=== PATIENT | female | born 2000 | race Hispanic/Latino ===

== ENCOUNTER 2021-02-26 14:25 | Emergency (ER) | payer MEDICAID ==
[2021-02-26 15:07] LABS: BASOPHILS % (AUTO) 0.4 % (0.0-5.0); EOSINOPHILS % (AUTO) 0.5 % (0.0-8.0); HEMATOCRIT 41.5 % (36-48); LYMPHOCYTES % (AUTO) 14.6 % (21.0-51.0); MEAN CORPUSCULAR HEMOGLOBIN 29.9 pg (27.0-33.0); MEAN CORPUSCULAR HGB CONC 34.9 g/dL (32.0-36.0); MEAN CORPUSCULAR VOLUME 85.6 fL (80-100); MONOCYTES % (AUTO) 6.6 % (3.0-13.0); NEUTROPHILS % (AUTO) 77.6 % (40.0-77.0); PLATELET COUNT (AUTO) 315 K/uL (130-400); RED BLOOD CELL COUNT(AUTO) 4.85 MIL/uL (4.00-5.50); RED CELL DISTRIBUTION WIDTH 12.6 % (11.0-15.5); WHITE BLOOD COUNT (AUTO) 11.4 K/uL (4.8-10.8)
[2021-02-26 15:27] LABS: CREATININE 1.2 mg/dL (0.5-1.5); POTASSIUM 3.6 mmol/L (3.5-5.1)
[2021-02-26 15:54] LABS: ALBUMIN 3.9 g/dL (3.5-5.0); BILIRUBIN,TOTAL 0.3 mg/dL (0.2-1.0); TOTAL PROTEIN, SERUM 8.6 g/dL (6.0-8.3)
[2021-02-26 15:59] LABS: APPEARANCE,URINE Cloudy (CLEAR); BILIRUBIN,URINE Negative (NEGATIVE); COLOR,URINE Yellow (YELLOW); GLUCOSE, URINE (UA) Negative (NEGATIVE); KETONES,URINE Negative (NEGATIVE); LEUKOCYTE ESTERASE ,URINE Small (NEGATIVE); NITRATE,URINE Negative (NEGATIVE); OCCULT BLOOD,URINE Negative (NEGATIVE); PH,URINE 7.5 (5.0-8.0); PROTEIN,URINE Negative (NEGATIVE)
[2021-02-26 16:21] LABS: BACTERIA,URINE Moderate /HPF (None Seen); MUCUS,URINE Few LPF (None Seen); SQUAMOUS EPITHELIAL CELL,UR Many /HPF (0-2)
== END 2021-02-26 16:22 | disposition home or self-care (01) ==
LOC: EDH 14:25
DX: O26.891 Other specified pregnancy related conditions, first trimester (principal); R10.2 Pelvic and perineal pain; Z3A.01 Less than 8 weeks gestation of pregnancy; Z98.890 Other specified postprocedural states; Z87.891 Personal history of nicotine dependence
CPT/HCPCS: 36415; 76801; 80053; 81001; 83690; 84702; 85025; 87088

== ENCOUNTER 2023-08-18 21:05 | Inpatient (IN) | payer MEDICAID ==
[~2023-08-18] VITALS: Ht 157.5 cm; Wt 85.5 kg
[2023-08-18 21:25] VITALS: BP 124/62; PULSE 96; RESP 20
[2023-08-18 21:40] VITALS: O2SAT 98
[2023-08-18] MEDS ORDERED: MORPHINE 2 MG SYG IV PRN (22:00)
[2023-08-18] MEDS ORDERED: MORPHINE 4 MG SYG IV PRN (22:00)
[2023-08-18] MEDS ORDERED: ACETAMINOPHEN 325 MG TAB PO PRN ×2 (22:00)
[2023-08-18 22:22] LABS: BASOPHILS # (AUTO) 0.05 K/uL (0.00-0.20); BASOPHILS % (AUTO) 0.2 % (0.0-5.0); EOSINOPHILS # (AUTO) 0.02 K/uL (0.00-0.70); EOSINOPHILS % (AUTO) 0.1 % (0.0-8.0); IMMATURE GRANULOCYTE ABSOLUTE 0.07 K/uL (0-1); LYMPHOCYTES # (AUTO) 1.9 K/uL (1.0-4.8); MEAN CORPUSCULAR HGB CONC 34.5 g/dL (32.0-36.0); MEAN CORPUSCULAR VOLUME 78.3 fL (79-99); MONOCYTES # (AUTO) 1.9 K/uL (0.1-1.0); NEUTROPHILS # (AUTO) 16.9 K/uL (1.8-7.7); NEUTROPHILS % (AUTO) 81.4 % (40.0-77.0); PLATELET COUNT (AUTO) 251 K/uL (130-400); RED BLOOD CELL COUNT(AUTO) 3.96 MIL/uL (4.00-5.50); WHITE BLOOD COUNT (AUTO) 20.7 K/uL (4.8-10.8)
[2023-08-18 22:44] LABS: BILIRUBIN,TOTAL 0.7 mg/dL (0.2-1.0); CREATININE 0.5 mg/dL (0.5-1.5); TOTAL PROTEIN, SERUM 7.1 g/dL (6.0-8.3)
[2023-08-18 22:47] LABS: POTASSIUM 2.6 mmol/L (3.5-5.1)
[2023-08-18] MEDS ORDERED: MAGNESIUM 2GM PREMIX 50ML 50 ML IV PRN (23:00)
[2023-08-18] MEDS ORDERED: ONDA-104 PO (23:07)
[2023-08-18] MEDS: POTASSIUM CHLORIDE 20MEQ/100ML 100 ML IV PRN (23:13)
[2023-08-18] MEDS: LACTATED RINGERS 1000ML 1,000 ML IV SCH (23:14)
[2023-08-18 23:40] VITALS: O2SAT 97
[2023-08-18] MEDS: ZOSYN 3.375GM +NS 50ML IVPB SCH (23:47)
[2023-08-18 23:59] VITALS: BP 122/65; PULSE 92; RESP 19
[2023-08-19] VITALS (7 sets, daily range): BP systolic 95–125; BP diastolic 53–67; PULSE 89–98; RESP 17–19; O2SAT 97–100
[2023-08-19] MEDS ORDERED: 0.9%NACL 50ML IV SCH
[2023-08-19] MEDS: POTASSIUM CHLORIDE 20MEQ/100ML 100 ML IV PRN ×2 (04:00→11:17)
[2023-08-19 04:15] LABS: APPEARANCE,URINE CLEAR (CLEAR); BILIRUBIN,URINE NEGATIVE (NEGATIVE); COLOR,URINE YELLOW (YELLOW); GLUCOSE, URINE (UA) NEGATIVE (NEGATIVE); KETONES,URINE 150 mg/dL (NEGATIVE); LEUKOCYTE ESTERASE ,URINE NEGATIVE Leu/uL (NEGATIVE); NITRATE,URINE NEGATIVE (NEGATIVE); OCCULT BLOOD,URINE NEGATIVE (NEGATIVE); PROTEIN,URINE 30 mg/dL (NEGATIVE); UROBILINOGEN,URINE 0.2 mg/dL (0.2-1.0)
[2023-08-19 04:32] LABS: ADD UA MICROSCOPIC YES
[2023-08-19 04:33] LABS: MUCUS,URINE RARE LPF (None Seen); SQUAMOUS EPITHELIAL CELL,UR FEW /HPF (0-2)
[2023-08-19 04:52] LABS: BASOPHILS # (AUTO) 0.05 K/uL (0.00-0.20); BASOPHILS % (AUTO) 0.3 % (0.0-5.0); EOSINOPHILS # (AUTO) 0.03 K/uL (0.00-0.70); EOSINOPHILS % (AUTO) 0.2 % (0.0-8.0); HEMATOCRIT 29.6 % (36-48); IMMATURE GRANULOCYTE ABSOLUTE 0.06 K/uL (0-1); LYMPHOCYTES # (AUTO) 1.9 K/uL (1.0-4.8); LYMPHOCYTES % (AUTO) 11.6 % (21.0-51.0); MEAN CORPUSCULAR HEMOGLOBIN 26.5 pg (27.0-33.0); MEAN CORPUSCULAR HGB CONC 33.8 g/dL (32.0-36.0); MEAN CORPUSCULAR VOLUME 78.5 fL (79-99); MONOCYTES # (AUTO) 1.6 K/uL (0.1-1.0); MONOCYTES % (AUTO) 9.9 % (3.0-13.0); NEUTROPHILS # (AUTO) 12.5 K/uL (1.8-7.7); NEUTROPHILS % (AUTO) 77.6 % (40.0-77.0); PLATELET COUNT (AUTO) 233 K/uL (130-400); RED BLOOD CELL COUNT(AUTO) 3.77 MIL/uL (4.00-5.50); RED CELL DISTRIBUTION WIDTH 15.3 % (11.0-15.5); WHITE BLOOD COUNT (AUTO) 16.1 K/uL (4.8-10.8)
[2023-08-19 05:09] LABS: INR 1.31 (0.85-1.15); PROTHROMBIN TIME 14.9 SEC (9.6-11.6)
[2023-08-19 05:11] LABS: PARTIAL THROMBOPLASTIN TIME 32.2 SEC (26.3-35.5)
[2023-08-19 05:18] LABS: CREATININE 0.6 mg/dL (0.5-1.5); MAGNESIUM 1.3 mg/dL (1.80-2.40); PHOSPHORUS 3.2 mg/dL (2.5-4.9)
[2023-08-19 05:23] LABS: POTASSIUM 2.9 mmol/L (3.5-5.1)
[2023-08-19] MEDS: ZOSYN 3.375GM +NS 50ML IVPB SCH ×3 (06:10→23:06)
[2023-08-19] MEDS ORDERED: DIATR MEGLU/DIATRIZOATE SODIUM 30 ML BOTTLE ONE (08:31)
[2023-08-19] MEDS: THIAMINE HCL 100 MG/ML 2ML VIAL IVP SCH (09:26)
[2023-08-19] MEDS: FAMOTIDINE 20MG VIAL IV SCH ×2 (09:27→21:43)
[2023-08-19] MEDS: LACTATED RINGERS 1000ML 1,000 ML IV SCH (11:27)
[2023-08-19] MEDS: ONDANSETRON 4MG INJ IV PRN (13:17)
[2023-08-19] MEDS: MAGNESIUM 2GM PREMIX 50ML 50 ML IV PRN (13:22)
[2023-08-20] VITALS (8 sets, daily range): BP systolic 101–118; BP diastolic 58–63; PULSE 70–91; RESP 17–19; O2SAT 100
[2023-08-20] MEDS: LACTATED RINGERS 1000ML 1,000 ML IV SCH (01:33)
[2023-08-20] MEDS: POTASSIUM CHLORIDE 20MEQ/100ML 100 ML IV PRN ×2 (01:33→12:15)
[2023-08-20] MEDS: ZOSYN 3.375GM +NS 50ML IVPB SCH ×3 (06:51→23:16)
[2023-08-20 06:57] LABS: BASOPHILS # (AUTO) 0.02 K/uL (0.00-0.20); BASOPHILS % (AUTO) 0.2 % (0.0-5.0); EOSINOPHILS # (AUTO) 0.11 K/uL (0.00-0.70); HEMATOCRIT 28.2 % (36-48); IMMATURE GRANULOCYTE ABSOLUTE 0.04 K/uL (0-1); LYMPHOCYTES # (AUTO) 1.9 K/uL (1.0-4.8); MEAN CORPUSCULAR HEMOGLOBIN 27.1 pg (27.0-33.0); MEAN CORPUSCULAR VOLUME 79.7 fL (79-99); MONOCYTES % (AUTO) 8.9 % (3.0-13.0); NEUTROPHILS # (AUTO) 7.9 K/uL (1.8-7.7); NEUTROPHILS % (AUTO) 72.5 % (40.0-77.0); PLATELET COUNT (AUTO) 230 K/uL (130-400); RED BLOOD CELL COUNT(AUTO) 3.54 MIL/uL (4.00-5.50); RED CELL DISTRIBUTION WIDTH 15.4 % (11.0-15.5); WHITE BLOOD COUNT (AUTO) 10.9 K/uL (4.8-10.8)
[2023-08-20 07:11] LABS: ALBUMIN 2.6 g/dL (3.5-5.0); BILIRUBIN,TOTAL 0.6 mg/dL (0.2-1.0); CREATININE 0.5 mg/dL (0.5-1.5); MAGNESIUM 1.5 mg/dL (1.80-2.40); POTASSIUM 3.2 mmol/L (3.5-5.1); TOTAL PROTEIN, SERUM 6.7 g/dL (6.0-8.3)
[2023-08-20] MEDS: THIAMINE HCL 100 MG/ML 2ML VIAL IVP SCH (09:26)
[2023-08-20] MEDS: FAMOTIDINE 20MG VIAL IV SCH ×2 (09:26→20:22)
[2023-08-20] MEDS ORDERED: AMOX1TAB15 PO (10:57)
[2023-08-20] MEDS: ONDANSETRON 4MG INJ IV PRN (12:14)
[2023-08-20] MEDS: MAGNESIUM 2GM PREMIX 50ML 50 ML IV PRN (12:15)
[2023-08-21] VITALS (7 sets, daily range): BP systolic 105–124; BP diastolic 61–68; PULSE 70–80; RESP 18; O2SAT 100
[2023-08-21] MEDS: ZOSYN 3.375GM +NS 50ML IVPB SCH ×2 (06:39→16:08)
[2023-08-21 06:50] LABS: HEMATOCRIT 28.1 % (36-48); MEAN CORPUSCULAR HEMOGLOBIN 26.5 pg (27.0-33.0); MEAN CORPUSCULAR HGB CONC 32.7 g/dL (32.0-36.0); RED BLOOD CELL COUNT(AUTO) 3.47 MIL/uL (4.00-5.50); RED CELL DISTRIBUTION WIDTH 15.3 % (11.0-15.5); WHITE BLOOD COUNT (AUTO) 7.1 K/uL (4.8-10.8)
[2023-08-21 07:00] LABS: CREATININE 0.5 mg/dL (0.5-1.5); MAGNESIUM 1.6 mg/dL (1.80-2.40); POTASSIUM 3.1 mmol/L (3.5-5.1)
[2023-08-21] MEDS: MAGNESIUM 2GM PREMIX 50ML 50 ML IV PRN (08:45)
[2023-08-21] MEDS: THIAMINE HCL 100 MG/ML 2ML VIAL IVP SCH (08:45)
[2023-08-21] MEDS: FAMOTIDINE 20MG VIAL IV SCH (08:45)
[2023-08-21] MEDS: POTASSIUM CHLORIDE 20MEQ/100ML 100 ML IV PRN ×2 (08:46→15:10)
[2023-08-21] MEDS ORDERED: POTASSIUM CHLORIDE 20MEQ/100ML 100 ML IV PRN (09:30)
[2023-08-21] MEDS ORDERED: POTASSIUM CHLORIDE 10% ELIXIR 20 MEQ/15 ML UDCUP PO PRN (09:30)
[2023-08-21] MEDS ORDERED: KCL 20 MEQ ERTAB PO PRN (09:30)
[2023-08-21] MEDS ORDERED: GABA-529 PO (17:15)
[2023-08-21] MEDS ORDERED: AMOX-426 PO (17:15)
[2023-08-21] MEDS ORDERED: ACET-66 PO (17:15)
== END 2023-08-21 19:00 | disposition home or self-care (01) | DRG 463 ==
LOC: 3BH 21:05
PROVIDERS: ADMIT Surgery; ATTEND Surgery
DX: N39.0 Urinary tract infection, site not specified (principal); E44.0 Moderate protein-calorie malnutrition; E86.0 Dehydration; E83.42 Hypomagnesemia; E66.9 Obesity, unspecified; E87.6 Hypokalemia; Z59.7 Insufficient social insurance and welfare support; Z98.84 Bariatric surgery status; Z75.3 Unavailability and inaccessibility of health-care facilities; Z68.34 Body mass index [BMI] 34.0-34.9, adult
CPT/HCPCS: 36415; 71045; 74176; 80048; 80053; 81001; 83605; 83735; 84100; 84132; 84145; 85025; 85027; 85610; 85730; 86850; 86900; 86901; 87040; 93005; G0378; J2270; J2405; J2543; J3411; J3475; J3480; J3490; J7120; Q9963; A4510; A4600

== ENCOUNTER 2024-03-21 01:54 | Emergency (ER) | payer MEDICAID, OTHER ==
[~2024-03-21] VITALS: Ht 157.5 cm; Wt 61.2 kg
[~2024-03-21 01:54] MED LIST: AMOX1TAB15 PO; ONDA-104 PO
[2024-03-21 02:16] LABS: RAPID GROUP A STREP negative (NEGATIVE)
[2024-03-21 02:22] LABS: INFLUENZA TYPE A NEGATIVE FOR TYPE A (NEG); INFLUENZA TYPE B NEGATIVE FOR TYPE B (NEG)
[2024-03-21 02:23] LABS: SARS-CoV-2, RNA, NAAT NEGATIVE SARS CoV-2 (NEGATIVE)
[2024-03-21 02:43] LABS: BASOPHILS # (AUTO) 0.05 K/uL (0.00-0.20); BASOPHILS % (AUTO) 0.4 % (0.0-5.0); EOSINOPHILS % (AUTO) 0.7 % (0.0-8.0); HEMATOCRIT 38.4 % (36-48); IMMATURE GRANULOCYTE ABSOLUTE 0.06 K/uL (0-1); LYMPHOCYTES # (AUTO) 2.1 K/uL (1.0-4.8); LYMPHOCYTES % (AUTO) 15.5 % (21.0-51.0); MEAN CORPUSCULAR HEMOGLOBIN 27.7 pg (27.0-33.0); MEAN CORPUSCULAR HGB CONC 33.1 g/dL (32.0-36.0); MEAN CORPUSCULAR VOLUME 83.7 fL (79-99); MONOCYTES % (AUTO) 7.3 % (3.0-13.0); NEUTROPHILS # (AUTO) 10.3 K/uL (1.8-7.7); NEUTROPHILS % (AUTO) 75.7 % (40.0-77.0); PLATELET COUNT (AUTO) 427 K/uL (130-400); RED BLOOD CELL COUNT(AUTO) 4.59 MIL/uL (4.00-5.50); RED CELL DISTRIBUTION WIDTH 13.2 % (11.0-15.5); WHITE BLOOD COUNT (AUTO) 13.6 K/uL (4.8-10.8)
[2024-03-21 02:52] LABS: CREATININE 0.7 mg/dL (0.5-1.0); POTASSIUM 3.5 mmol/L (3.5-5.1)
[2024-03-21 02:58] LABS: ALBUMIN 3.5 g/dL (3.5-5.0); BILIRUBIN,TOTAL 0.4 mg/dL (0.2-1.0); TOTAL PROTEIN, SERUM 8.4 g/dL (6.0-8.3)
[2024-03-21] MEDS ORDERED: IOHEXOL-350 50ML VIAL IV ONE (03:29)
[2024-03-21] MEDS: SOLU-MEDROL 125MG VIAL IVP ONE (03:33)
[2024-03-21] MEDS: CEFTRIAXONE 1G VIAL IVPB ONE (03:34)
[2024-03-21] MEDS: APAP/CODEINE 120/12MG 5ML PO STA (04:21)
[2024-03-21] MEDS: PREDNISOLONE 15 MG/5 ML SOLN PO STA (04:21)
[2024-03-21] MEDS: KETOROLAC 30MG VIAL (30MG/ML) IVP ONE (05:49)
[2024-03-21] MEDS: MORPHINE 2 MG SYG IVP ONE (08:07)
[2024-03-21] MEDS: ONDANSETRON 4MG INJ ONE (08:35)
[2024-03-21] MEDS: ONDANSETRON 4MG INJ IVP ONE (09:14)
[2024-03-21 09:22] VITALS: BP 106/66; PULSE 74; RESP 16; O2SAT 96
== END 2024-03-21 10:18 | disposition short-term general hospital (02) ==
LOC: EDH 01:54
DX: J36 Peritonsillar abscess (principal); Z20.822 Contact with and (suspected) exposure to COVID-19; Z79.899 Other long term (current) drug therapy; Z98.890 Other specified postprocedural states
CPT/HCPCS: 99285; 96365; 96375; 70491; 87635; 80053; 84703; 85025; 87880; 87804 ×2; 36415; J2270; J2919; J0696; J2405; J1885; Q9967